=== PATIENT | male | born 1955 | race Caucasian/White ===

== ENCOUNTER 2016-10-08 16:02 | Emergency (ER) | payer OTHER ==
[2016-10-08 16:15] VITALS: PULSE 70; RESP 20
--- NOTE | 2016-10-08 16:42 | EDPHY ---
H & P Time Seen by Provider: 10/08/16 16:05 HPI/ROS: CHIEF COMPLAINT: Pain in the area East catheter HISTORY OF PRESENT ILLNESS: patient was at [facility] this morning at 10:30 a.m. with sensation of being unable to urinate. 2 attempts were made by nurse was there to place a East catheter and were unsuccessful. He was referred to urology office Dr. Whiting for catheter was placed. He was placed on Flomax and azo and was discharged home. He presents the emergency department with intermittent severe urethral pain which was 10/10 at home and now is a little bit better. His urine is orange in color. No fever or chills. No back pain or weakness or numbness in legs. He does have occasional of some urine leaking around the catheter at the end of his penis this afternoon. \ REVIEW OF SYSTEMS: Eye: no change in vision ENT: no sore throat Cardiac: no chest pain or syncope Pulmonary: no cough or SOB Abdomen: no vomiting, diarrhea, abdominal pain Musculoskeletal: no back pain Skin: no rash Neuro: no headache Constitutional: no fever : HPI A comprehensive 10 point review of systems is otherwise negative aside from elements mentioned in the history of present illness. PAST MEDICAL HISTORY: enlarged prostate diagnosed today , had 1 testicle removed in the past Social history: General Appearance: Alert and conversant, cooperative. Eyes: No scleral icterus. ENT, Mouth: Normal mucous membranes. Respiratory: Normal respiratory effort, breath sounds equal, lungs are clear to auscultation. Cardiovascular: Regular rate and rhythm. Gastrointestinal: mild suprapubic tenderness, catheter in place, male normal except for 1 testicle. Neurological: Alert and oriented x3. Normally conversant. Face symmetric, normal movement and sensation in all extremities. Skin: Warm and dry, no rashes. Musculoskeletal: No peripheral edema and no joint swelling. Psychiatric: Not agitated. Emergency Department course/MDM: Bladder scan shows empty bladder. Bedside ultrasound by myself shows catheter in position. Chemistry panel performed Catheter flushes well, results discussed at 5:10 p.m.. Normal creatinine. Follow up with Urology. I think the most likely reason for the patient's symptoms are that he had 3 attempts required including urology physician needed to place his East catheter. He probably has local trauma which is causing his symptoms. He does not have evidence in the emergency department that the catheter is obstructed or that not in the urethra or bladder. Nurse was able to flush his catheter normally. Urine is in the bag and appropriate color given that he is on azo. Patient does have pain medication prescribed by his urologist. He and his state they are comfortable with discharge and monitoring his symptoms and outpatient follow-up as already arranged. Smoking Status: Former smoker Constitutional: Initial Vital Signs Temperature (C) 37.1 C 10/08/16 16:11 Heart Rate 70 10/08/16 16:11 Respiratory Rate 20 10/08/16 16:11 Blood Pressure 164/91 H 10/08/16 16:11 O2 Sat (%) 94 10/08/16 16:11 O2 Delivery Mode Room Air Allergies/Adverse Reactions: No Known Allergies Allergy (Unverified 05/11/12 08:09) Home Medications: Medication Instructions Recorded Miscellaneous Medical Supply [NO 1 ea MISC AD 05/11/12 HOME MEDS] Azo Bladder Control Capsule 10/08/16 CeleBREX 10/08/16 Flomax 10/08/16 Hydrocodone/Acetaminophen 10/08/16 Medical Decision Making Procedures: Procedure: Limited ultrasound of bladder. Indication: East catheter problem. Findings: Bladder is not distended, catheter is seen in the bladder, balloon is up. Interpretation: Appropriate position and no current evidence of urinary retention. Images personally obtained and interpreted by myself. Images archived. Differential Diagnosis: Differential considered including but not limited to UTI, trauma from catheter placement, catheter occlusion, bladder spasm. - Data Points Laboratory Results: Laboratory Results 10/08/16 16:10 10/08/16 16:10 Sodium 146 mEq/L H mEq/L (134-144) Potassium 4.3 mEq/L mEq/L (3.5-5.2) Chloride 106 mEq/L mEq/L (97-110) Carbon Dioxide 27 mEq/l mEq/l (22-31) Anion Gap 13 mEq/L mEq/L (8-16) BUN 13 mg/dL mg/dL (7-23) Creatinine 1.0 mg/dL mg/dL (0.7-1.3) Estimated GFR > 60 Glucose 92 mg/dL mg/dL (70-100) Calcium 10.1 mg/dL mg/dL (8.5-10.4) Departure - Departure Disposition: Home, Routine, Self-Care Clinical Impression: Urethral pain, East catheter in place Condition: Good Instructions: East Catheter Placement and Care (ED) Referrals: Patient,NotPresent [Unknown] - As per Instructions Warren Whiting MD [Medical Doctor] - As per Instructions (as scheduled )
[2016-10-08 16:44] LABS: ANION GAP 13 mEq/L (8-16); CALCIUM 10.1 mg/dL (8.5-10.4); CARBON DIOXIDE 27 mEq/l (22-31); CHLORIDE 106 mEq/L (97-110); GLOMERULAR FILTRATION RATE > 60; GLUCOSE 92 mg/dL (70-100); POTASSIUM 4.3 mEq/L (3.5-5.2); SODIUM 146 mEq/L (134-144)
[2016-10-08 17:42] VITALS: BP 137/77; TEMP 98.1; O2SAT 97
== END 2016-10-08 17:42 | disposition home or self-care (01) ==
LOC: EDUNIT#
PROC: 0T9B70Z Drainage of Bladder with Drainage Device, Via Natural or Artificial Opening (ICD-10-PCS; principal; 2016-10-08)
DX: N36.8 Other specified disorders of urethra (principal); Z87.891 Personal history of nicotine dependence; Z96.0 Presence of urogenital implants; Y82.8 Other medical devices associated with adverse incidents

== ENCOUNTER 2016-12-14 06:39 | Emergency (ER) | payer OTHER ==
[2016-12-14] MEDS ORDERED: HYDROmorphONE/DILAUDID 1 MG/ML SYR IVP ONE ×3 (06:52→08:50)
[2016-12-14] MEDS ORDERED: NS 1,000 ML IV ONE ×2 (07:05→09:35)
--- NOTE | 2016-12-14 07:14 | EDPHY ---
HPI/HX/ROS/PE/MDM Narrative: CHIEF COMPLAINT: Abdominal pain HISTORY OF PRESENT ILLNESS:This patient is a 61 year old man presenting with acute lower abdominal pain and cramping, onset four hours ago at 3m this morning. Pain is moderate in severity and radiates to the back. It is associated with loose stools and nausea, onset shortly after pain onset. He denies vomiting, fever, or urinary complaints. He was in his usual state of health last night, but admits to eating too many pistachio nuts before bed. No recent international travel, antibiotic use, or ill contacts. REVIEW OF SYSTEMS: Aside from elements discussed in the HPI, a comprehensive 10-point review of systems was reviewed and is negative. PAST MEDICAL HISTORY: BPH, inguinal hernia repair, history of left heart catheterization showing no obstructive coronary disease, history of normal colonoscopy in the past SOCIAL HISTORY: , non-smoker VITAL SIGNS: Reviewed by me GENERAL: Well-developed, well-nourished, reports moderate pain. HEENT: Atraumatic. Eyes: No icterus, no injection. Mouth: Slightly dry mucous membranes. No erythema or lesions. Neck: supple with no adenopathy. LUNGS: Clear to auscultation bilaterally, no wheezes, rhonchi or rales. CARDIAC: Regular rate and rhythm, no rubs, murmurs or gallops. ABDOMEN: Soft, moderate left lower abdominal tenderness, mild-moderate right lower quadrant tenderness, nondistended, bowel sounds normal. BACK: Left flank tenderness, which he states is not new for him. EXTREMITIES: No trauma. No edema. Range of motion is normal throughout. NEURO: Alert and oriented, grossly nonfocal. SKIN: Clammy and mildly diaphoretic, no rash. PSYCHIATRIC: Normal mentation, no agitation. Portions of this note were transcribed by a medical records receptionist. I personally performed a history, physical exam, medical decision making, and confirmed accuracy of information the transcribed note. ED Course: An IV has been establish and he has received 1L IV normal saline and IV Dilaudid. The patient's reports that he feels anxious. I offered anxiety medication, however he declines. I discussed possible etiologies and my recommendation for CT of the abdomen and pelvis. CT of the abdomen pelvis demonstrates 2.5mm left ureteral calculus, mild obstructive uropathy. Patient received fluids and Toradol. He is currently taking Flomax already. Percocet prescribed for pain. Patient referred to urology. I discussed customary kidney stone return precautions and discharge instructions. MDM: Differential diagnosis of the patient's abdominal and flank pain was considered including but not limited to musculoskeletal causes, kidney stone, pyelonephritis, shingles, and intra-abdominal causes such as diverticulitis, and constipation. - Data Points Imaging Results: Imaging Impressions Abdomen CT 12/14/16 07:24 Impression: 1. 2.5 mm left ureteral calculus with associated mild obstructive uropathy. 2. Multiple well-circumscribed hepatic low-attenuation areas are presumably benign cysts. 3. Prostatic enlargement. 4. See above report for additional findings. Results called and discussed with Kimberli George MD on 12/14/2016 9:14 Laboratory Results: Laboratory Results 12/14/16 06:50 12/14/16 06:50 12/14/16 12/14/16 12/14/16 07:35 06:50 06:50 WBC 6.27 10^3/uL 10^3/uL (3.80-9.50) RBC 5.45 10^6/uL 10^6/uL (4.40-6.38) Hgb 16.1 g/dL g/dL (13.7-17.5) Hct 47.2 % % (40.0-51.0) MCV 86.6 fL fL (81.5-99.8) MCH 29.5 pg pg (27.9-34.1) MCHC 34.1 g/dL g/dL (32.4-36.7) RDW 13.1 % % (11.5-15.2) Plt Count 168 10^3/uL 10^3/uL (150-400) MPV 10.5 fL fL (8.7-11.7) Neut % (Auto) 69.3 % % (39.3-74.2) Lymph % (Auto) 18.7 % % (15.0-45.0) [place] % (Auto) 7.5 % % (4.5-13.0) Eos % (Auto) 3.2 % % (0.6-7.6) Baso % (Auto) 0.8 % % (0.3-1.7) Nucleat RBC Rel Count 0.0 % % (0.0-0.2) Absolute Neuts (auto) 4.35 10^3/uL 10^3/uL (1.70-6.50) Absolute Lymphs (auto) 1.17 10^3/uL 10^3/uL (1.00-3.00) Absolute Monos (auto) 0.47 10^3/uL 10^3/uL (0.30-0.80) Absolute Eos (auto) 0.20 10^3/uL 10^3/uL (0.03-0.40) Absolute Basos (auto) 0.05 10^3/uL 10^3/uL (0.02-0.10) Absolute Nucleated RBC 0.00 10^3/uL 10^3/uL (0-0.01) Immature Gran % 0.5 % % (0.0-1.1) Immature Gran # 0.03 10^3/uL 10^3/uL (0.00-0.10) Sodium 140 mEq/L mEq/L (134-144) Potassium 4.6 mEq/L mEq/L (3.5-5.2) Chloride 107 mEq/L mEq/L (97-110) Carbon Dioxide 23 mEq/l mEq/l (22-31) Anion Gap 10 mEq/L mEq/L (8-16) BUN 19 mg/dL mg/dL (7-23) Creatinine 0.9 mg/dL mg/dL (0.7-1.3) Estimated GFR > 60 Glucose 174 mg/dL H mg/dL (70-100) Calcium 9.3 mg/dL mg/dL (8.5-10.4) Total Bilirubin 1.8 mg/dL H mg/dL (0.1-1.4) Conjugated Bilirubin 0.2 mg/dL mg/dL (0.0-0.5) Unconjugated Bilirubin 1.6 mg/dL H mg/dL (0.0-1.1) AST 27 IU/L IU/L (17-59) ALT 41 IU/L IU/L (21-72) Alkaline Phosphatase 79 IU/L IU/L (38-126) Total Protein 6.8 g/dL g/dL (6.3-8.2) Albumin 4.3 g/dL g/dL (3.5-5.0) Lipase 670.0 IU/L H IU/L (23-300) Urine Color YELLOW Urine Appearance CLEAR Urine pH 5.0 (5.0-7.5) Ur Specific [place] 1.024 (1.002-1.030) Urine Protein NEGATIVE (NEGATIVE) Urine Ketones NEGATIVE (NEGATIVE) Urine Blood 3+ H (NEGATIVE) Urine Nitrate NEGATIVE (NEGATIVE) Urine Bilirubin NEGATIVE (NEGATIVE) Urine Urobilinogen NEGATIVE EU EU (0.2-1.0) Ur Leukocyte Esterase NEGATIVE (NEGATIVE) Urine RBC 50-182 /hpf H /hpf (0-3) Urine WBC 3-5 /hpf H /hpf (0-3) Ur Epithelial Cells NONE SEEN /lpf /lpf (NONE-1+) Urine Mucus TRACE /lpf /lpf (NONE-1+) Urine Glucose NEGATIVE (NEGATIVE) Medications Given: Discontinued Medications Hydromorphone HCl (Dilaudid) 0 mg IVP EDNOW ONE Stop: 12/14/16 06:53 Last Admin: 12/14/16 07:14 Dose: Not Given Hydromorphone HCl (Dilaudid) 1 mg IVP EDNOW ONE Stop: 12/14/16 07:26 Last Admin: 12/14/16 07:42 Dose: 1 mg Hydromorphone HCl (Dilaudid) 1 mg IVP EDNOW ONE Stop: 12/14/16 08:51 Last Admin: 12/14/16 08:53 Dose: 1 mg Sodium Chloride (Ns) 1,000 mls @ 0 mls/hr IV ONCE ONE PRN Reason: Wide Open Stop: 12/14/16 07:06 Last Admin: 12/14/16 07:05 Dose: 1,000 mls Sodium Chloride (Ns) 1,000 mls @ 0 mls/hr IV ONCE ONE PRN Reason: Wide Open Stop: 12/14/16 09:36 Last Admin: 12/14/16 09:46 Dose: 1,000 mls Ketorolac Tromethamine (Toradol) 30 mg IVP EDNOW ONE Stop: 12/14/16 10:07 Last Admin: 12/14/16 10:16 Dose: 30 mg Lorazepam (Ativan Injection) 0.5 mg IVP EDNOW ONE Stop: 12/14/16 08:28 Last Admin: 12/14/16 08:33 Dose: 0.5 mg Ondansetron HCl (Zofran) 4 mg IVP EDNOW ONE Stop: 12/14/16 07:27 Last Admin: 12/14/16 07:42 Dose: 4 mg General Time Seen by Provider: 12/14/16 07:05 Initial Vital Signs: Initial Vital Signs Temperature (C) 36.7 C 12/14/16 06:45 Heart Rate 78 12/14/16 06:45 Respiratory Rate 16 12/14/16 06:45 Blood Pressure 141/76 H 12/14/16 06:45 O2 Sat (%) 95 12/14/16 06:45 O2 Delivery Mode Room Air O2 (L/minute) 2 Allergies/Adverse Reactions: No Known Allergies Allergy (Unverified 12/14/16 06:52) Home Medications: Medication Instructions Recorded Miscellaneous Medical Supply [NO 1 ea MISC AD 05/11/12 HOME MEDS] Azo Bladder Control Capsule 10/08/16 CeleBREX 10/08/16 Flomax 10/08/16 Hydrocodone/Acetaminophen 10/08/16 Ondansetron Odt [Zofran Odt 4 mg 4 mg PO Q6 PRN #8 tab 12/14/16 (RX)] oxyCODONE/APAP 5/325 [Percocet 1 tab PO QID PRN #20 tab 12/14/16 5/325 (*)] Departure - Departure Disposition: Home, Routine, Self-Care Clinical Impression: Ureteral calculus, left Abdominal pain Qualifiers: Abdominal location: left lower quadrant Qualified Code(s): R10.32 - Left lower quadrant pain Condition: Good Instructions: Kidney Stones (ED), How to Strain Your Urine (ED) Additional Instructions: Take Percocet as needed for severe pain. Use Zofran as needed for nausea. Take ibuprofen 600 mg every 6-8 hours as needed for moderate pain. This will also help with inflammation. Take Flomax as directed. Followup with urology as directed below. Strain urine. Return to the emergency department if you have worsening pain, fevers, persistent vomiting, or other concerns. Referrals: Veronica Montero MD [Medical Doctor] - As per Instructions (Urologist) Prescriptions: Ondansetron Odt [Zofran Odt 4 mg (RX)] 4 mg PO Q6 PRN #8 tab PRN Reason: Nausea oxyCODONE/APAP 5/325 [Percocet (*)] 1 tab PO QID PRN #20 tab PRN Reason: Pain Report Scribed for: Kimberli George Report Scribed by: Blaire Carrillo Date of Report: 12/14/16 Time of Report: 07:21
[2016-12-14] MEDS ORDERED: ONDANSETRON 4 MG/2 ML VIAL IVP ONE (07:26)
[2016-12-14 07:35] LABS: % IMMATURE GRANULYOCYTES 0.5 % (0.0-1.1); ABSOLUTE IMMATURE GRANULOCYTES 0.03 10^3/uL (0.00-0.10); ADD DIFF? NO; ADD MORPH? NO; ADD SCAN? NO; ATYPICAL LYMPHOCYTE FLAG 0 (0-99); FRAGMENT RBC FLAG 0 (0-99); HEMATOCRIT 47.2 % (40.0-51.0); HEMOGLOBIN 16.1 g/dL (13.7-17.5); LEFT SHIFT FLG 0 (0-99); LIPEMIA HEMOLYSIS FLAG 90 (0-99); MEAN CELL HEMOGLOBIN 29.5 pg (27.9-34.1); MEAN CELL HEMOGLOBIN CONCENTR. 34.1 g/dL (32.4-36.7); MEAN CELL VOLUME 86.6 fL (81.5-99.8); MEAN PLATELET VOLUME 10.5 fL (8.7-11.7); PLATELET CLUMPS FLAG 10 (0-99); PLATELET COUNT 168 10^3/uL (150-400); RED BLOOD CELL COUNT 5.45 10^6/uL (4.40-6.38); RED CELL DISTRIBUTION WIDTH 13.1 % (11.5-15.2)
[2016-12-14] MEDS ORDERED: IOPAMIDOL (ISOVUE-300) 100 ML BTL IV ONE (07:40)
[2016-12-14 07:42] LABS: ALANINE AMINOTRANSFERASE 41 IU/L (21-72); ALBUMIN 4.3 g/dL (3.5-5.0); ALKALINE PHOSPHATASE 79 IU/L (38-126); ANION GAP 10 mEq/L (8-16); ASPARTATE AMINOTRANSFERASE 27 IU/L (17-59); BILIRUBIN,TOTAL 1.8 mg/dL (0.1-1.4); BILIRUBIN-CONJUGATED 0.2 mg/dL (0.0-0.5); BILIRUBIN-UNCONJUGATED 1.6 mg/dL (0.0-1.1); CALCIUM 9.3 mg/dL (8.5-10.4); CARBON DIOXIDE 23 mEq/l (22-31); CHLORIDE 107 mEq/L (97-110); CREATININE 0.9 mg/dL (0.7-1.3); GLOMERULAR FILTRATION RATE > 60; GLUCOSE 174 mg/dL (70-100); POTASSIUM 4.6 mEq/L (3.5-5.2); SODIUM 140 mEq/L (134-144); TOTAL PROTEIN 6.8 g/dL (6.3-8.2)
[2016-12-14 07:48] LABS: COLOR YELLOW; LEUKOCYTE ESTERASE,URINE NEGATIVE (NEGATIVE); NITRITE,URINE NEGATIVE (NEGATIVE)
[2016-12-14 08:01] LABS: MUCUS TRACE /lpf (NONE-1+); RBC,URINE 50-182 /hpf (0-3)
[2016-12-14] MEDS ORDERED: LORazepam 2 MG/ML INJ IVP ONE (08:27)
[2016-12-14 08:54] VITALS: O2SAT 97
[2016-12-14] MEDS ORDERED: KETOROLAC 30 MG/1 ML SDV IVP ONE (10:06)
[2016-12-14 10:54] VITALS: BP 110/76; PULSE 68; RESP 18; TEMP 97.5
== END 2016-12-14 10:53 | disposition home or self-care (01) ==
LOC: EDUNIT#
DX: N20.1 Calculus of ureter (principal)
CPT/HCPCS: 96374; J1170; J1885; J2060; J2405; Q9967

== ENCOUNTER → 2017-11-28 | Outpatient (CLI) | payer BC, OTHER | LOC: FIMAGING 08:33 | PROVIDERS: ATTEND Specialist | DX: Z03.89 Encounter for observation for other suspected diseases and conditions ruled out (principal) ==

== ENCOUNTER → 2018-09-09 | Outpatient (CLI) | payer OTHER, MEDICARE ==
[~2018-09-09] MED LIST: IOPAMIDOL (ISOVUE 370) 100 ML BTL IV ONE
== END ==
LOC: FIMAGING 15:36
PROVIDERS: ATTEND Internal Medicine
DX: R51 Headache (principal); Z82.49 Family history of ischemic heart disease and other diseases of the circulatory system
CPT/HCPCS: 70450; 70496; Q9967; 82565-PO